=== PATIENT | female | born 1975 | race Caucasian/White ===

== ENCOUNTER 2016-05-21 08:57 | Day surgery (SDC) | payer OTHER ==
[2016-05-21 11:02] VITALS: BMI 36.5
[2016-05-21 11:38] VITALS: TEMP 97.5
[2016-05-21 12:35] VITALS: BP 128/84; PULSE 59
--- NOTE | 2016-05-22 12:36 | PATH ---
Surgical Pathology Report Patient Name: SELINA MEDRANO [facility]. Rec. #: [id number] /Age/Gender: 1975 (Age: 40) / F Account: [id number] Location: [facility]-ENDOSCOPY Taken: 05/21/2016 Received: 05/21/2016 Reported: 05/22/2016 Physicians: Josef Paniagua M.D. Specimen(s) Received A: BX DUODENUM B: BX ANTRUM ERYTHEMA C: BX BODY ERYTHEMA Clinical History Persistent regurgitation despite medication Gastritis Final Diagnosis A. DUODENUM, BIOPSY: DUODENAL MUCOSA WITH NO PATHOLOGIC CHANGES. NO HISTOLOGIC EVIDENCE OF GLUTEN SENSITIVE ENTEROPATHY (CELIAC SPRUE) IDENTIFIED. B. STOMACH, ANTRUM, BIOPSY: MODERATE CHRONIC ACTIVE GASTRITIS. IMMUNOSTAIN FOR H. PYLORI IS POSITIVE (MANY ORGANISMS) C. STOMACH, BODY, BIOPSY: MODERATE CHRONIC ACTIVE GASTRITIS. IMMUNOSTAIN FOR H. PYLORI IS POSITIVE (MANY ORGANISMS). Electronically Signed Rick Cobb M.D. Gross Description A. Received in formalin, labeled "biopsy duodenum" are 2 noel, irregular portions of soft tissue measuring 0.2 and 0.3 cm. in greatest dimension. The specimens are submitted in toto in one cassette. B. Received in formalin, labeled "biopsy antrum" are 3 noel, irregular portions of soft tissue ranging from 0.1-0.3 cm. in greatest dimension. The specimens are submitted in toto in one cassette. C. Received in formalin, labeled "biopsy body" are 2 noel, irregular portions of soft tissue averaging 0.3 cm. in greatest dimension. The specimens are submitted in toto in one cassette. 05/21/2016 [facility]05/21/2016
== END 2016-05-21 12:35 | disposition home or self-care (01) ==
LOC: JASU-ENDO 08:57
PROVIDERS: ATTEND Internal Medicine Gastroenterology
PROC: 0DB68ZX Excision of Stomach, Via Natural or Artificial Opening Endoscopic, Diagnostic (ICD-10-PCS; 2016-05-21)
PROC: 0DB98ZX Excision of Duodenum, Via Natural or Artificial Opening Endoscopic, Diagnostic (ICD-10-PCS; principal; 2016-05-21 11:45)
DX: K29.50 Unspecified chronic gastritis without bleeding (principal)
CPT/HCPCS: 84703; 88305-TC; 88342-TC